=== PATIENT | female | born 1965 | race Caucasian/White ===

== ENCOUNTER 2017-11-28 12:29 | Day surgery (SDC) | payer OTHER ==
[2017-11-15 15:32] VITALS: BMI 32.5
[2017-11-28] MEDS ORDERED: MIDAZOLAM HCL 2 MG/2 ML SINGLE DOSE VIAL ONE (14:23)
[2017-11-28] MEDS ORDERED: ceFAZolin SODIUM 1 GM VIAL ONE (14:40)
[2017-11-28] MEDS ORDERED: GLYCOPYRROLATE 0.2 MG/1 ML VIAL ONE (14:40)
[2017-11-28] MEDS ORDERED: oxyCODONE HCL 5 MG TABLET PO PRN ×2 (15:04)
[2017-11-28] MEDS ORDERED: ONDANSETRON 4 MG/2 ML VIAL IVPUSH PRN (15:04)
[2017-11-28] MEDS ORDERED: LACTATED RINGERS SOLUTION 1,000 ML IV SCH (15:15)
[2017-11-28 18:11] VITALS: BP 120/77; PULSE 79; TEMP 98
--- NOTE | 2017-11-28 20:09 | OP ---
DATE OF OPERATION: 11/28/2017 PREOPERATIVE DIAGNOSIS: Right carpal tunnel syndrome. POSTOPERATIVE DIAGNOSIS: Right carpal tunnel syndrome. PROCEDURE: Right carpal tunnel release. ANESTHESIA: Local with sedation. COMPLICATIONS: None. ESTIMATED BLOOD LOSS: Minimal. INDICATIONS FOR PROCEDURE: The patient is a 52-year-old female with the above findings and indicated for operative treatment. Risks, benefits, and alternatives were discussed with the patient at length. Proper informed consent was obtained. PROCEDURE: After proper identification of the patient and the correct operative site, the patient was brought to the operating room and placed supine on the operating table. All bony prominences were well padded. Sedation was given by the anesthesiologist with local anesthesia with 2% lidocaine. The right upper extremity was prepped and draped in the usual sterile fashion. A well-padded tourniquet was placed after the sterile prep. Esmarch bandage was used to exsanguinate the right upper extremity. Tourniquet was inflated to 250 mmHg. Longitudinal incision was made over the proximal aspect of the palm. Incision was taken sharply through the skin with blunt and sharp dissection through the subcutaneous tissues. Palmar fascia was divided longitudinally. Transcarpal ligament along with the distal 4 cm of the antebrachial fascia were divided longitudinally under direct visualization with loupe magnification. This provided complete release of the median nerve at the wrist. Wound was irrigated with saline and repaired with a 5-0 nylon suture. Sterile dressings were applied. Patient was reversed from anesthesia and brought to the recovery room in stable condition. She tolerated the procedure well. Fanta [id number]
== END 2017-11-28 16:45 | disposition home or self-care (01) ==
LOC: FASU 12:29
PROVIDERS: ATTEND Orthopaedic Surgery Hand Surgery
PROC: 01N50ZZ Release Median Nerve, Open Approach (ICD-10-PCS; principal; 2017-11-28 14:46)
DX: G56.01 Carpal tunnel syndrome, right upper limb (principal)

== ENCOUNTER 2018-04-17 09:58 | Day surgery (SDC) | payer OTHER ==
[2018-04-15 13:25] VITALS: BMI 32.9
[2018-04-17] MEDS ORDERED: LIDOCAINE HCL 2% (20ML MULTI-DOSE VIAL) NR ONE (10:51)
[2018-04-17] MEDS ORDERED: MIDAZOLAM HCL 2 MG/2 ML SINGLE DOSE VIAL ONE (11:22)
[2018-04-17] MEDS ORDERED: PROPOFOL 20 ML ONE (11:22)
[2018-04-17] MEDS ORDERED: ONDANSETRON 4 MG/2 ML VIAL ONE (11:23)
[2018-04-17] MEDS ORDERED: DEXAMETHASONE SOD PHOSPHATE 4 MG/1 ML VIAL ONE (11:23)
[2018-04-17] MEDS ORDERED: KETOROLAC TROMETHAMINE 30 MG/1 ML VIAL ONE (11:23)
[2018-04-17] MEDS ORDERED: LIDOCAINE HCL 2% (50ML VIAL) INF ONE (11:28)
[2018-04-17] MEDS ORDERED: ONDANSETRON 4 MG/2 ML VIAL IVPUSH PRN (11:40)
[2018-04-17] MEDS ORDERED: oxyCODONE HCL 5 MG TABLET PO PRN (11:40)
[2018-04-17] MEDS ORDERED: LACTATED RINGERS SOLUTION 1,000 ML IV SCH (11:45)
[2018-04-17 12:56] VITALS: BP 118/70; PULSE 60; TEMP 98.1
--- NOTE | 2018-04-18 14:13 | OP ---
DATE OF OPERATION: 04/17/2018 PREOPERATIVE DIAGNOSIS: Left carpal tunnel syndrome. POSTOPERATIVE DIAGNOSIS: Left carpal tunnel syndrome. OPERATIVE PROCEDURE: Left carpal tunnel release. ANESTHESIA: Local with sedation. COMPLICATIONS: None. ESTIMATED BLOOD LOSS: Minimal. INDICATION FOR PROCEDURE: The patient is a 53-year-old female with the above finding, indicated for operative treatment. Risks, benefits, and alternatives were discussed with the patient at length. Proper informed consent was obtained. DESCRIPTION OF PROCEDURE: After proper identification of the patient and the correct operative site, patient was brought to the operating room and placed supine on the operative table. Prominences were well padded. Sedation and local anesthesia were given. Left upper extremity was prepped and draped in the usual sterile fashion. Esmarch bandage to exsanguinate the left upper extremity. Tourniquet was inflated to 250 mmHg. A longitudinal incision was made in the proximal aspect of the palm. Incision was taken sharply through the skin with blunt and sharp dissection through the subcutaneous tissues. Palmar fascia was divided longitudinally. Transcarpal ligament along with the distal 4 cm of the antebrachial fascia were divided longitudinally under direct visualization with loupe magnification. This provided complete release of the median nerve at the wrist. Wound was irrigated with saline and repaired with a 5-0 nylon suture. Sterile dressings were applied. Patient was brought to the recovery room in stable condition. She tolerated the procedure well. SUDHIR OHARA M.D. [id number]
== END 2018-04-17 12:56 | disposition home or self-care (01) ==
LOC: FASU 09:58
PROVIDERS: ATTEND Orthopaedic Surgery Hand Surgery
PROC: 01N50ZZ Release Median Nerve, Open Approach (ICD-10-PCS; principal; 2018-04-17 11:00)
DX: G56.02 Carpal tunnel syndrome, left upper limb (principal)